=== PATIENT | female | born 1980 | race Caucasian/White ===

== ENCOUNTER 2017-09-09 21:38 | Emergency (ER) | payer OTHER ==
[2017-09-09] MEDS ORDERED: Metoclopramide 10 MG/2 ML SDV IVPUSH ONE (22:14)
[2017-09-09] MEDS ORDERED: Lactated Ringers 1,000 ML IV ONE (22:14)
[2017-09-09] MEDS ORDERED: Acetaminophen 500 MG Tab PO ONE (22:14)
[2017-09-09] MEDS ORDERED: Dicyclomine 10 MG Cap PO ONE (22:14)
--- NOTE | 2017-09-09 22:20 | EDM.PDOC ---
ED HPI GENERAL MEDICAL PROBLEM - General Chief Complaint: Gastrointestinal Problem Stated Complaint: FOOD POISONING? Time Seen by Provider: 09/09/17 22:00 Source of Information: Reports: Patient, Old Records, RN History Limitations: Reports: No Limitations - History of Present Illness INITIAL COMMENTS - FREE TEXT/NARRATIVE: 37 yo female with onset yesterday of nausea, vomiting, and diarrhea. No fever. No bleeding. Slightly dizzy with standing. Here with her . Onset Date: 09/08/17 Duration: Day(s): (1), Constant Location: Reports: Abdomen Quality: Reports: Other (cramping) Severity: Moderate Improves with: Reports: Other (not eating) Worsens with: Reports: Eating Context: Reports: Other (sister with similar sx's) Associated Symptoms: Reports: Nausea/Vomiting. 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 Denies: Black Stool, Bloody Stool, Hematemesis, Hematochezia, Melena : Reports: No Symptoms Musculoskeletal: Reports: No Symptoms Skin: Reports: No Symptoms Neurological: Reports: No Symptoms Psychiatric: Reports: No Symptoms ED EXAM, GI/ABD - Physical Exam Exam: See Below Exam Limited By: No Limitations General Appearance: Alert, WD/WN, No Apparent Distress Eyes: Bilateral: Normal Appearance, EOMI Ears: Normal External Exam, Normal Canal, Hearing Grossly Normal, Normal TMs Nose: Normal Inspection, Normal Mucosa, No Blood Throat/Mouth: Normal Inspection, Normal Lips, Normal Oropharynx, Normal Voice, No Airway Compromise Head: Atraumatic, Normocephalic Neck: Normal Inspection Respiratory/Chest: No Respiratory Distress, Lungs Clear, Normal Breath Sounds, No Accessory Muscle Use Cardiovascular: Regular Rate, Rhythm, No Edema GI/Abdominal Exam: Soft, Non-Tender, Abnormal Bowel Sounds (increased) Back Exam: Normal Inspection Extremities: Normal Inspection, Normal Range of Motion, Non-Tender, No Pedal Edema Neurological: Alert, Oriented, CN II-XII Intact, Normal Cognition, No Motor/ Sensory Deficits Psychiatric: Normal Affect, Normal Mood Skin Exam: Warm, Dry, Intact, Normal Color, No Rash Course - Vital Signs Text/Narrative:: Feeling a lot better after treatment here. Last Recorded V/S: Last Vital Signs Temp 37.1 C 09/09/17 22:03 Pulse 92 09/09/17 22:03 Resp 16 09/09/17 22:03 BP 132/87 09/09/17 22:03 Pulse Ox 95 09/09/17 22:03 - Orders/Labs/Meds Meds: Medications Discontinued Medications Generic Name Dose Route Start Last Admin Trade Name Qiana PRN Reason Stop Dose Admin Acetaminophen 1,000 mg 09/09/17 22:14 09/09/17 22:44 Tylenol Extra Strength PO 09/09/17 22:15 1,000 mg ONETIME ONE Administration Dicyclomine HCl 20 mg 09/09/17 22:14 09/09/17 22:43 Bentyl PO 09/09/17 22:15 20 mg ONETIME ONE Administration Lactated Ringer's 1,000 mls @ 1,000 mls/hr 09/09/17 22:14 09/09/17 22:44 Ringers, Lactated IV 09/09/17 23:13 1,000 mls/hr BOLUS ONE Administration Metoclopramide HCl 10 mg 09/09/17 22:14 09/09/17 22:44 Reglan IVPUSH 09/09/17 22:15 10 mg ONETIME ONE Administration Departure - Departure Time of Disposition: 23:40 Disposition: Home, Self-Care 01 Condition: Good Clinical Impression: Gastroenteritis - Discharge Information Referrals: PCP,None [Primary Care Provider] - Forms: ED Department Discharge
== END 2017-09-09 23:53 | disposition home or self-care (01) ==
LOC: JP.ED 21:38
DX: K52.9 Noninfective gastroenteritis and colitis, unspecified (principal); Z79.899 Other long term (current) drug therapy
CPT/HCPCS: 96361; 96374; 99284; A9270; J2765; J7120